=== PATIENT | male | born 1955 | race Caucasian/White ===

== ENCOUNTER 2018-11-12 09:48 | Day surgery (SDC) | payer OTHER ==
[2018-11-09 17:26] VITALS: BMI 20.3
[2018-11-12] MEDS ORDERED: MIDAZOLAM HCL 2 MG/2 ML SINGLE DOSE VIAL ONE (12:28)
[2018-11-12] MEDS ORDERED: DEXAMETHASONE SOD PHOSPHATE 4 MG/1 ML VIAL ONE (12:42)
[2018-11-12] MEDS ORDERED: PROPOFOL 20 ML ONE (12:42)
[2018-11-12] MEDS ORDERED: KETOROLAC TROMETHAMINE 30 MG/1 ML VIAL ONE (12:42)
--- NOTE | 2018-11-12 13:39 | OP ---
Operative Note - Note: Operative Date: 11/12/18 Pre-Operative Diagnosis: bladder tumor Operation: cystoscopy/bladder biopsy/transurethral vaporization of bladder tumor Findings: posteror wall erythematous raised area measuring 5x5 cm vaporization taken to level of muscle Post-Operative Diagnosis: Same as Pre-op Surgeon: Sean Roy Anesthesia: General Specimens Removed: bladder biopsy specimens Operative Report Dictated: Yes
[2018-11-12] MEDS ORDERED: SUCCINYLCHOLINE CHLORIDE 200 MG/10 ML VIAL ONE (13:47)
[2018-11-12] MEDS ORDERED: oxyCODONE HCL 5 MG TABLET PO PRN (13:53)
[2018-11-12] MEDS ORDERED: PROMETHAZINE HCL 25 MG/1 ML VIAL IVPB PRN (13:53)
[2018-11-12] MEDS ORDERED: LACTATED RINGERS SOLUTION 1,000 ML IV SCH (14:00)
[2018-11-12 17:56] VITALS: BP 138/90; PULSE 74; TEMP 98.2
--- NOTE | 2018-11-15 15:16 | PATH ---
Surgical Pathology Report Patient Name: NURYS WEBB [facility]. Rec. 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 SEE COMMENT. Comment: Biopsy shows papillary fragments with partially denuded urothelium and reactive changes. Immunohistochemical stains performed at [place], [place] ([id number]) and interpreted at [facility] show CD44 is strongly and diffusely positive. CK20 shows rare positivity. P53 shows weak staining. Proliferative marker Ki67 was utilized to evaluate this case. Overall histomorphology and immunophenotype support a reactive process. Electronically Signed Leidy Wright M.D. Gross Description Received in formalin, labeled "bladder tumor biopsy" are 3 orellana, irregular portions of soft tissue averaging 0.1 cm. in greatest dimension. The specimens are submitted in toto in one cassette. 11/12/201811/12/2018
--- NOTE | 2018-12-02 18:19 | OP ---
DATE OF OPERATION: 11/12/2018 PREOPERATIVE DIAGNOSIS: Bladder tumor. POSTOPERATIVE DIAGNOSIS: Bladder tumor. PROCEDURE: Transurethral vaporization of bladder tumor and bladder biopsy. ATTENDING SURGEON: Kemar Roy MD ANESTHESIA: General. OPERATION: The patient was brought to the operating room and placed in the supine position on the operating table. Cystoscopy was performed. A 5 x 5 cm, erythematous, raised area in the posterior bladder was noted. Biopsy of this tissue was performed. This was sent for pathological evaluation. At this point, the area involving the neoplasm was vaporized to the level of the deep muscle of the bladder. No complications were noted. Excellent hemostasis was obtained. The patient was left with a Solis catheter. DISPOSITION: Patient was to the recovery room. KEMAR DUFFY M.D. [id number]
== END 2018-11-12 17:00 | disposition home or self-care (01) ==
LOC: JASU-SURG 09:48
PROVIDERS: ATTEND Urology
PROC: 0T5B8ZZ Destruction of Bladder, Via Natural or Artificial Opening Endoscopic (ICD-10-PCS; principal; 2018-11-12 11:30)
DX: N30.80 Other cystitis without hematuria (principal)
CPT/HCPCS: 88305-TC; 94760

== ENCOUNTER 2022-03-28 04:14 | Day surgery (SDC) | payer OTHER ==
[2022-03-24 12:04] VITALS: BMI 23.1
[2022-03-28] MEDS ORDERED: PROPOFOL 20 ML ONE (11:03)
[2022-03-28] MEDS ORDERED: ACETAMINOPHEN 325 MG TABLET (FP) PO PRN (11:32)
[2022-03-28] MEDS ORDERED: oxyCODONE HCL 5 MG TABLET PO PRN (11:32)
[2022-03-28] MEDS ORDERED: ONDANSETRON 4 MG/2 ML VIAL IVPUSH PRN (11:32)
[2022-03-28] MEDS ORDERED: LACTATED RINGERS SOLUTION 1,000 ML IV SCH (11:45)
[2022-03-28 14:08] VITALS: BP 152/84; PULSE 63; TEMP 97.8
== END 2022-03-28 13:15 | disposition home or self-care (01) ==
LOC: JASU-SURG 04:14
PROVIDERS: ATTEND Urology
PROC: 0TF3XZZ Fragmentation in Right Kidney Pelvis, External Approach (ICD-10-PCS; principal; 2022-03-28 10:00)
DX: N20.0 Calculus of kidney (principal)

== ENCOUNTER 2022-11-01 04:52 | Day surgery (SDC) | payer OTHER ==
[2022-10-31 12:10] VITALS: BMI 28.3
[2022-11-01 09:38] VITALS: TEMP 97.5
[2022-11-01 10:08] VITALS: PULSE 65
[2022-11-01 10:22] VITALS: BP 118/77; RESP 16
== END 2022-11-01 10:22 | disposition home or self-care (01) ==
LOC: MERGE 04:52 → JASU-ENDO 04:52 → EDSEX 09:00 → JASU-ENDO 10:22
PROVIDERS: ATTEND Student in an Organized Health Care Education/Training Program
PROC: 0DB78ZX Excision of Stomach, Pylorus, Via Natural or Artificial Opening Endoscopic, Diagnostic (ICD-10-PCS; 2022-11-01)
PROC: 0DB68ZX Excision of Stomach, Via Natural or Artificial Opening Endoscopic, Diagnostic (ICD-10-PCS; 2022-11-01)
PROC: 0DB48ZX Excision of Esophagogastric Junction, Via Natural or Artificial Opening Endoscopic, Diagnostic (ICD-10-PCS; 2022-11-01)
PROC: 0DB98ZX Excision of Duodenum, Via Natural or Artificial Opening Endoscopic, Diagnostic (ICD-10-PCS; principal; 2022-11-01 09:00)
DX: K29.50 Unspecified chronic gastritis without bleeding (principal)
CPT/HCPCS: 88305-TC; 88342-TC